=== PATIENT | female | born 1965 | race Caucasian/White ===

== ENCOUNTER 2016-11-28 09:28 | Inpatient (IN) | payer MEDICARE, MEDICAID ==
[~2016-11-28] VITALS: Ht 157.5 cm; Wt 65.3 kg
[2016-11-28] MEDS ORDERED: SODIUM CHLORIDE 0.9% 1,000 ML ONE ×3 (10:18→12:24)
[2016-11-28] MEDS ORDERED: ONDANSETRON 4 MG VIAL IV PRN (13:10)
[2016-11-28] MEDS ORDERED: SODIUM CHLORIDE 0.9% 1,000 ML IV SCH (13:10)
[2016-11-28] MEDS ORDERED: GLUCAGON 1 MG VIAL IM PRN (13:10)
[2016-11-28] MEDS ORDERED: DEXTROSE 50% SYRINGE 50 ML IV PRN (13:10)
[2016-11-28] MEDS ORDERED: SALINE FLUSH 10 ML FLUSH PRN (13:10)
[2016-11-28 15:48] VITALS: BP_SYST 111; BP_SYST 74; BP_SYST 94; BP_SYST 95; RESP 18; TEMP 97.3; Ht 157.5 cm; Wt 65.3 kg
[2016-11-28 17:03] VITALS: RESP 18
[2016-11-28] MEDS: CEFTRIAXONE 1 GM in SODIUM CHLORIDE 0.9% 50 ML IV SCH (17:07)
[2016-11-28] MEDS: SODIUM CHLORIDE 0.9% FLUSH BAG 500 ML IV SCH (17:08)
[2016-11-28] MEDS: ENOXAPARIN 40 MG/0.4 ML SYR SUBQ SCH (17:08)
[2016-11-28 19:00] VITALS: BP_SYST 98; RESP 18; TEMP 97.9
[2016-11-28] MEDS: SALINE FLUSH 10 ML FLUSH SCH (20:56)
[2016-11-28] MEDS: PANTOPRAZOLE 20 MG TAB PO SCH (20:57)
[2016-11-28] MEDS: CHLORPROMAZINE 25 MG TAB PO SCH (20:57)
[2016-11-28] MEDS: VENLAFAXINE XR 150 MG CAP PO SCH (20:57)
[2016-11-28] MEDS ORDERED: LEVEMIR INSULIN SUBQ SCH (21:00)
[2016-11-28 23:18] VITALS: BP_SYST 95; RESP 18; TEMP 98.3
[2016-11-29 03:30] VITALS: BP_SYST 102; RESP 18; TEMP 98.1
[2016-11-29] MEDS: ACETAMINOPHEN 325 MG TAB PO PRN ×2 (03:51→23:48)
[2016-11-29] MEDS: LEVOTHYROXINE 0.15 MG TAB PO SCH (05:27)
[2016-11-29 07:38] VITALS: BP_SYST 111; RESP 18; TEMP 98.1
[2016-11-29] MEDS ORDERED: SODIUM CHLORIDE 0.9% 1,000 ML IV SCH (08:55)
[2016-11-29] MEDS: SALINE FLUSH 10 ML FLUSH SCH ×2 (09:02→20:00)
[2016-11-29] MEDS: CEFTRIAXONE 1 GM in SODIUM CHLORIDE 0.9% 50 ML IV SCH (09:02)
[2016-11-29] MEDS: Atorvastatin 40 MG TAB PO SCH (09:02)
[2016-11-29] MEDS: VENLAFAXINE XR 150 MG CAP PO SCH ×2 (09:02→20:48)
[2016-11-29] MEDS: ENOXAPARIN 40 MG/0.4 ML SYR SUBQ SCH (09:03)
[2016-11-29 14:34] VITALS: BP_SYST 134; RESP 16; TEMP 98.1
[2016-11-29 19:05] VITALS: BP_SYST 128; RESP 18; TEMP 99.7
[2016-11-29] MEDS: PANTOPRAZOLE 20 MG TAB PO SCH (20:49)
[2016-11-29] MEDS: CHLORPROMAZINE 25 MG TAB PO SCH (20:49)
[2016-11-29] MEDS ORDERED: LEVEMIR INSULIN SUBQ SCH (21:00)
[2016-11-29 23:47] VITALS: BP_SYST 126; RESP 18; TEMP 100.6
[2016-11-30 04:11] VITALS: BP_SYST 104; RESP 18; TEMP 98.6
[2016-11-30] MEDS: SODIUM CHLORIDE 0.9% FLUSH BAG 500 ML IV SCH (05:45)
[2016-11-30] MEDS: LEVOTHYROXINE 0.15 MG TAB PO SCH (06:22)
[2016-11-30 07:09] VITALS: BP_SYST 125; RESP 20; TEMP 98.6
[2016-11-30] MEDS: SALINE FLUSH 10 ML FLUSH SCH ×2 (07:26→21:23)
[2016-11-30] MEDS: Atorvastatin 40 MG TAB PO SCH ×2 (09:00→21:24)
[2016-11-30] MEDS: CEFTRIAXONE 1 GM in SODIUM CHLORIDE 0.9% 50 ML IV SCH (09:25)
[2016-11-30] MEDS: VENLAFAXINE XR 150 MG CAP PO SCH ×2 (09:26→21:23)
[2016-11-30] MEDS: ENOXAPARIN 40 MG/0.4 ML SYR SUBQ SCH (09:27)
[2016-11-30 11:08] VITALS: BP_SYST 115; RESP 28; TEMP 100
[2016-11-30] MEDS: ACETAMINOPHEN 325 MG TAB PO PRN (12:40)
[2016-11-30 14:59] VITALS: BP_SYST 113; RESP 18; TEMP 98.2
[2016-11-30 19:19] VITALS: BP_SYST 130; RESP 20; TEMP 99.3
[2016-11-30] MEDS: CHLORPROMAZINE 25 MG TAB PO SCH (21:24)
[2016-11-30] MEDS: PANTOPRAZOLE 20 MG TAB PO SCH (21:24)
[2016-11-30] MEDS: LEVEMIR INSULIN SUBQ SCH (21:25)
[2016-11-30 22:47] VITALS: BP_SYST 122; RESP 18; TEMP 100.3
[2016-12-01 04:20] VITALS: BP_SYST 126; RESP 20; TEMP 101.6
[2016-12-01] MEDS: ACETAMINOPHEN 325 MG TAB PO PRN ×2 (04:24→17:20)
[2016-12-01] MEDS: LEVOTHYROXINE 0.15 MG TAB PO SCH (06:50)
[2016-12-01] MEDS: SODIUM CHLORIDE 0.9% FLUSH BAG 500 ML IV SCH (06:51)
[2016-12-01 07:16] VITALS: BP_SYST 102; RESP 18; TEMP 98.2
[2016-12-01 07:17] VITALS: RESP 18
[2016-12-01] MEDS: VENLAFAXINE XR 150 MG CAP PO SCH ×2 (09:17→20:34)
[2016-12-01] MEDS: CEFTRIAXONE 1 GM in SODIUM CHLORIDE 0.9% 50 ML IV SCH (09:17)
[2016-12-01] MEDS: SALINE FLUSH 10 ML FLUSH SCH ×2 (09:18→20:36)
[2016-12-01] MEDS: ENOXAPARIN 40 MG/0.4 ML SYR SUBQ SCH (09:18)
[2016-12-01 11:28] VITALS: BP_SYST 128; RESP 18; TEMP 98.1
[2016-12-01 16:11] VITALS: BP_SYST 134; RESP 18; TEMP 98.2
[2016-12-01 19:14] VITALS: BP_SYST 116; RESP 18; TEMP 98.2
[2016-12-01] MEDS: Atorvastatin 40 MG TAB PO SCH (20:35)
[2016-12-01] MEDS: PANTOPRAZOLE 20 MG TAB PO SCH (20:35)
[2016-12-01] MEDS: CHLORPROMAZINE 25 MG TAB PO SCH (20:36)
[2016-12-01] MEDS: LEVEMIR INSULIN SUBQ SCH (20:51)
[2016-12-02 00:24] VITALS: BP_SYST 133; RESP 18; TEMP 98.5
[2016-12-02 03:00] VITALS: BP_SYST 130; RESP 18; TEMP 97.9
[2016-12-02] MEDS: SODIUM CHLORIDE 0.9% FLUSH BAG 500 ML IV SCH (06:42)
[2016-12-02] MEDS: LEVOTHYROXINE 0.15 MG TAB PO SCH (06:42)
[2016-12-02 07:16] VITALS: BP_SYST 133; RESP 20; TEMP 98.4
[2016-12-02] MEDS: SALINE FLUSH 10 ML FLUSH SCH (08:35)
[2016-12-02] MEDS: VENLAFAXINE XR 150 MG CAP PO SCH (08:35)
[2016-12-02] MEDS: CEFTRIAXONE 1 GM in SODIUM CHLORIDE 0.9% 50 ML IV SCH (08:35)
[2016-12-02] MEDS: ENOXAPARIN 40 MG/0.4 ML SYR SUBQ SCH (08:36)
[2016-12-02 11:31] VITALS: BP_SYST 144; RESP 20; TEMP 97.8
[2016-12-02 11:32] VITALS: BP_SYST 144; RESP 20; TEMP 97.8
[2016-12-02 11:34] VITALS: BP_SYST 144; RESP 20; TEMP 97.8
== END 2016-12-02 12:24 | disposition home or self-care (01) | DRG 871 ==
LOC: ENRESERVTM → ENRESERVDT → ER 09:28 → EMR 13:09 → ENPENDDIS 13:38 → OBSVTOIN 13:38 → PCU2 15:23 → 4NT 11-29 14:29
PROVIDERS: ADMIT Internal Medicine; ATTEND Internal Medicine
DX: A41.9 Sepsis, unspecified organism (principal); R65.21 Severe sepsis with septic shock; N17.9 Acute kidney failure, unspecified; N39.0 Urinary tract infection, site not specified; E87.1 Hypo-osmolality and hyponatremia; R31.9 Hematuria, unspecified; E11.65 Type 2 diabetes mellitus with hyperglycemia; K76.0 Fatty (change of) liver, not elsewhere classified; E03.9 Hypothyroidism, unspecified; F32.9 Major depressive disorder, single episode, unspecified; K21.9 Gastro-esophageal reflux disease without esophagitis; E78.5 Hyperlipidemia, unspecified; B96.20 Unspecified Escherichia coli [E. coli] as the cause of diseases classified elsewhere; J44.9 Chronic obstructive pulmonary disease, unspecified; Z79.4 Long term (current) use of insulin; F17.200 Nicotine dependence, unspecified, uncomplicated
CPT/HCPCS: 36415; 74176; 80048; 80053; 80162; 81001; 82947; 82977; 83605; 84439; 84443; 84484; 85025; 85610; 85730; 87040; 87077; 87088; 87186; 93005; 94799; 96360; 96361; 99223; 99232; 99233; 99238

== ENCOUNTER 2016-12-19 16:35 | Inpatient (IN) | payer MEDICARE, MEDICAID ==
[~2016-12-19] VITALS: Ht 157.5 cm; Wt 76.3 kg
[2016-12-19 19:05] VITALS: BP_SYST 100; BP_SYST 108; RESP 20; TEMP 97.6
[2016-12-19 19:08] VITALS: Ht 157.5 cm; Wt 76.3 kg
[2016-12-19] MEDS ORDERED: ACETAMINOPHEN 325 MG TAB PO PRN (21:55)
[2016-12-19] MEDS ORDERED: ONDANSETRON 4 MG VIAL IV PUSH PRN (21:55)
[2016-12-19] MEDS ORDERED: DEXTROSE 50% SYRINGE 50 ML IV PRN (22:20)
[2016-12-19] MEDS ORDERED: GLUCAGON 1 MG VIAL IM PRN (22:20)
[2016-12-19 22:52] VITALS: BP_SYST 103; RESP 20; TEMP 98.5
[2016-12-20 03:38] VITALS: BP_SYST 103; RESP 20; TEMP 98.6
[2016-12-20 07:44] VITALS: BP_SYST 104; RESP 20; TEMP 98.2
[2016-12-20] MEDS ORDERED: oxyCODONE/APAP 10/325 TABLET PO PRN (10:10)
[2016-12-20] MEDS: LEVOTHYROXINE 0.15 MG TAB PO SCH (10:53)
[2016-12-20] MEDS: PIOGLITAZONE 15 MG TAB PO SCH (10:53)
[2016-12-20] MEDS: SODIUM CHLORIDE 0.9% 1,000 ML IV SCH (10:54)
[2016-12-20 11:41] VITALS: BP_SYST 105; BP_SYST 110; BP_SYST 89
[2016-12-20] MEDS ORDERED: MISSING DOSE XX ONE (14:40)
[2016-12-20] MEDS: MIDODRINE 10 MG TAB PO SCH ×2 (15:08→18:16)
[2016-12-20 15:09] VITALS: BP_SYST 111; RESP 18; TEMP 97.9
[2016-12-20] MEDS: LEVEMIR INSULIN SUBQ SCH (17:00)
[2016-12-20 19:35] VITALS: BP_SYST 122; RESP 20; TEMP 98.2
[2016-12-20 23:36] VITALS: BP_SYST 119; RESP 20; TEMP 98.6
[2016-12-21 03:35] VITALS: BP_SYST 133; RESP 20; TEMP 97.7
[2016-12-21] MEDS: SODIUM CHLORIDE 0.9% 1,000 ML IV SCH (03:51)
[2016-12-21] MEDS: MIDODRINE 10 MG TAB PO SCH ×2 (06:30→10:41)
[2016-12-21] MEDS: LEVOTHYROXINE 0.15 MG TAB PO SCH (06:30)
[2016-12-21 07:03] VITALS: BP_SYST 118; RESP 24; TEMP 98.4
[2016-12-21] MEDS: PIOGLITAZONE 15 MG TAB PO SCH (08:14)
[2016-12-21] MEDS: LEVEMIR INSULIN SUBQ SCH (08:14)
[2016-12-21 10:14] VITALS: BP_SYST 131; RESP 20; TEMP 98.3
[2016-12-21 10:19] VITALS: BP_SYST 131; RESP 22; TEMP 98.3
[2016-12-21 10:38] VITALS: BP_SYST 131; RESP 22; TEMP 98.3
== END 2016-12-21 11:05 | disposition home or self-care (01) | DRG 74 ==
LOC: 3NT 18:17 → UNDOADMOB 18:17 → 3NT 18:55 → ENPENDDIS 12-20 13:32 → OBSVTOIN 12-20 13:32
PROVIDERS: ADMIT Internal Medicine Nephrology; ATTEND Internal Medicine Nephrology
DX: E11.43 Type 2 diabetes mellitus with diabetic autonomic (poly)neuropathy (principal); G92 Toxic encephalopathy; T50.995A Adverse effect of other drugs, medicaments and biological substances, initial encounter; F32.9 Major depressive disorder, single episode, unspecified; Z79.4 Long term (current) use of insulin; K21.9 Gastro-esophageal reflux disease without esophagitis; F17.200 Nicotine dependence, unspecified, uncomplicated; I10 Essential (primary) hypertension; E03.9 Hypothyroidism, unspecified; E78.5 Hyperlipidemia, unspecified; Z83.3 Family history of diabetes mellitus; Z82.49 Family history of ischemic heart disease and other diseases of the circulatory system
CPT/HCPCS: 80053; 81001; 82140; 82947; 85025; 87088